=== PATIENT | male | born 1980 | race African-American/Black ===

== ENCOUNTER 2021-05-28 18:52 | Emergency (ER) | payer MEDICARE, MEDICAID ==
[~2021-05-28] VITALS: Ht 182.9 cm; Wt 172.4 kg
[2021-05-28] MEDS ORDERED: cloNIDine HCL 0.1 MG TAB PO ONE (19:15)
[2021-05-28] MEDS ORDERED: IBUPROFEN 600 MG TAB PO ONE (20:00)
[2021-05-28 21:45] VITALS: BP 145/99
== END 2021-05-28 23:27 | disposition home or self-care (01) ==
LOC: ER 18:52
DX: S16.1XXA Strain of muscle, fascia and tendon at neck level, initial encounter (principal); R51.9 Headache, unspecified; I10 Essential (primary) hypertension; F17.210 Nicotine dependence, cigarettes, uncomplicated; X58.XXXA Exposure to other specified factors, initial encounter; Y93.89 Activity, other specified; Y92.89 Other specified places as the place of occurrence of the external cause; Y99.8 Other external cause status